=== PATIENT | male | born 1960 | race Caucasian/White ===

== ENCOUNTER 2017-03-24 11:06 | Inpatient (IN) ==
--- NOTE | 2017-03-24 11:14 | Emergency Department Note ---
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 He admits to increased hemoptysis from his baseline over these last few days as well that he attributes to his increased cough. His hemoptysis is still only blood streaked sputum occasionally with coughing. No massive hemoptysis. Per EMS his oxygen was 80% on room air. He states that his wheezing has also been worse than usual for the last few days. He has not spent the night in the hospital for the last 90 days. He has history of COPD and emphysema. He denies any headache, neck stiffness, blurred vision, abdominal pain, change in urination or bowel movements, rashes or edema. Pt Subjective Complaint: shortness of breath, cough - Related Data Home Medications Medication Instructions Recorded Confirmed Albuterol Neb [Proventil Neb] 1 - 2 puff IH Q4-6H 10/03/15 03/18/17 Cyclobenzaprine [Flexeril] 10 mg PO TID 10/03/15 03/18/17 Lisinopril [Zestril] 5 mg PO DAILY 10/03/15 03/18/17 Multivitamin [Multi-Day Vitamins] 1 each PO DAILY 10/03/15 03/18/17 Fluticasone/Vilanterol [Breo 1 each IH DAILY 03/18/17 03/18/17 Ellipta 100-25 Mcg INH] HYDROcodone/Acet 5/325 mg [[place] 1 tab PO Q6H PRN 03/18/17 03/18/17 5-325 mg] Previous Rx's Medication Instructions Recorded Guaifenesin [Guaifenesin ER] 1,200 mg PO BID #60 tab.er.12h 03/18/17 MethylPREDNISolone 4 mg PO AD #21 tab 03/18/17 [MethylPREDNISolone Dose Pack] Allergies Allergy/AdvReac Type Severity Reaction Status Date / Time No Known Allergies Allergy Verified 03/28/16 11:31 All systems ED: reviewed and negative except as stated. Past Medical History - Past Medical History Attestation: Yes The following information was validated with the patient. Source: patient Medical history: Reports: cancer, COPD, hypertension Surgical history: Reports: sinus surgery, other (Colonoscopy, nasal septum repair.) Psychiatric history: Reports: no psych history - Social History Smoking Status: Former smoker Smokeless Tobacco Status: Yes Alcohol use: Reports: none Drug use: Reports: none Physical Exam - Head Head exam: atraumatic, normocephalic, normal inspection - Eye Eye exam: Present: normal appearance, PERRL, EOMI - ENT ENT exam: normal exam, normal oropharynx, mucous membranes moist - Neck Neck exam: Present: normal inspection, full ROM, trachea midline - Chest Chest inspection: Present: normal inspection, symmetric chest wall rise - Respiratory Diffuse wheezes with crackles at the left lung base. Minimal stridor Cardiovascular Cardiovascular exam: Present: regular rate, normal rhythm, normal heart sounds - Abdominal Exam Abdominal exam: Present: soft, Non-Tender. Absent: tenderness, distention, guarding, rebound, rigidity - Extremities Exam Extremities exam: Present: normal inspection, full ROM - Expanded Lower Extremity Exam Hip/Pelvis exam: Present: normal inspection, full ROM - Back Exam Back exam: Present: normal inspection, full ROM. Absent: tenderness, CVA tenderness (R), CVA tenderness (L) - Neurological Exam Neurological exam: Present: alert, oriented X3, CN II-XII intact - Psychiatric Psychiatric exam: Present: normal affect, normal mood - Skin Skin exam: Present: warm, dry, intact, normal color Course - Reevaluation(s) Reevaluation #1: Chest x-ray shows pneumonia in the left lower lobe. Symptoms partially improved after DuoNeb treatment. Unfortunately, the patient still becomes hypoxic to <90% on room air just with talking to me. He will be admitted to the hospitalist for further management. Time: 12:26 Reevaluation #2: Accepted by Dr. Martinez for further management. Time: 12:47 Vital Signs Temperature 98.7 F 03/24/17 11:09 Pulse Rate 109 03/24/17 11:09 Respiratory Rate 16 03/24/17 11:09 Blood Pressure 127/80 03/24/17 11:09 O2 Sat by Pulse Oximetry 93 03/24/17 11:09 Temperature 98.7 F 03/24/17 11:09 Pulse Rate 110 03/24/17 11:09 Respiratory Rate 18 03/24/17 11:47 Blood Pressure 127/80 03/24/17 11:09 O2 Sat by Pulse Oximetry 91 03/24/17 11:47 Oxygen Delivery Oxygen Delivery Nasal Cannula Shortness of Breath/Dyspnea - Lab Data Result diagrams: 03/24/17 11:55 03/24/17 11:55 Lab Results 03/24/17 03/24/17 Range/Units 11:55 11:55 WBC 19.7 H (4.3-11.1) K/mcL RBC 4.63 (4.19-5.50) M/mcL Hgb 15.2 (12.9-16.9) g/dL Hct 44.4 (37.5-50.1) % MCV 95.9 (83.0-100.0) fL MCH 32.8 (28.0-33.3) pg MCHC 34.2 (31.6-35.5) g/dL RDW 12.2 (11.5-14.5) % Plt Count 427 H (140-400) K/mcL MPV 8.4 L (9.4-12.4) fL Immature Gran % 1.0 (0-4) % Seg Neutrophils % 87.8 % Lymphocytes % 2.5 % Monocytes % 8.1 % Eosinophils % 0.3 % Basophils % 0.3 % Neutrophils # 17.3 H (1.6-8.9) K/mcL Lymphocytes # 0.5 L (0.6-4.6) K/mcL Monocytes # 1.6 H (0.0-1.3) K/mcL Eosinophils # 0.1 (0.0-0.6) K/mcL Basophils # 0.1 (0.0-0.2) K/mcL Immature Plt Fraction 2.1 (1.1-6.1) % Sodium 133 L (136-145) mEq/L Potassium 3.9 (3.5-4.5) mEq/L Chloride 100 (98-109) mEq/L Carbon Dioxide 21 (19-29) mEq/L BUN 10 (8-26) mg/dL Creatinine 0.73 (0.72-1.25) mg/dL Est GFR ( Amer) > 60 (> 60) Est GFR (Non-Af Amer) > 60 (> 60) BUN/Creatinine Ratio 14 (6-26) Glucose 109 H (70-99) mg/dL Calculated Osmolality 276 L (280-300) Calcium 9.9 (8.6-10.8) mg/dL Attestation Statement - Attestation Attestation: Patient was seen with resident physician. I reviewed the history, physical, assessment and plan, and agree with the findings. I also personally evaluated this patient and had [id number] time with this patient. 56-year-old male presents to the emergency department with cough and hemoptysis increasing shortness of breath last 5-6 days. Patient has cancer and recent bronchoscopy approximately one month ago but states that his symptoms got worse over the last 5-6 days. He said the hemoptysis is somewhat usual for him, but the cough has gotten worse as has his shortness of breath. He has a history of COPD as well. He is concerned because he supposed to start a new chemotherapy agent at [facility] this week and wants to be ready for it, currently he does not feel well enough to have that treatment. On examination ENT is unremarkable. Heart tachycardic regular rhythm. Lungs diffuse wheezing throughout with no respiratory distress. Abdomen is soft and nontender. Extremities are unremarkable. Neurologically intact. Chest x-ray reveals pneumonia. We will treat with IV antibiotics. His breathing was improved with 3 nebulizer treatments while in the emergency department. Patient's oxygen level did not improve significantly enough for outpatient management. We will contact hospitalist service to arrange for hospitalization and further management for pneumonia and COPD exacerbation. I agree with resident physician assessment plan.
[2017-03-24] MEDS ORDERED: Ipratropium/Albuterol Neb 3 ML IH ONE (11:27)
[2017-03-24] MEDS ORDERED: methylPREDNISolone 125 MG/2 ML VIAL IVP ONE (11:29)
[2017-03-24 12:16] LABS: BUN/Creatinine Ratio 14 (6-26); Blood Urea Nitrogen 10 mg/dL (8-26); Calcium 9.9 mg/dL (8.6-10.8); Carbon Dioxide 21 mEq/L (19-29); Chloride 100 mEq/L (98-109); Glucose 109 mg/dL (70-99); Osmolality,Calculated 276 (280-300); Potassium 3.9 mEq/L (3.5-4.5); Sodium 133 mEq/L (136-145); eGFR For African Americans > 60 (> 60); eGFR For Non-African Americans > 60 (> 60)
[2017-03-24] MEDS ORDERED: Azithromycin 500 MG in D5% in Water 250 ML IVPB ONE (12:21)
[2017-03-24 12:24] LABS: Basophils # 0.1 K/mcL (0.0-0.2); Basophils % 0.3 %; Eosinophils # 0.1 K/mcL (0.0-0.6); Eosinophils % 0.3 %; Hematocrit 44.4 % (37.5-50.1); Hemoglobin 15.2 g/dL (12.9-16.9); Immature Platelets 2.1 % (1.1-6.1); Lymphocytes # 0.5 K/mcL (0.6-4.6); Lymphocytes % 2.5 %; Mean Corpuscular HGB Conc 34.2 g/dL (31.6-35.5); Mean Corpuscular Hemoglobin 32.8 pg (28.0-33.3); Mean Corpuscular Volume 95.9 fL (83.0-100.0); Mean Platelet Volume 8.4 fL (9.4-12.4); Monocytes # 1.6 K/mcL (0.0-1.3); Monocytes % 8.1 %; Neutrophils # 17.3 K/mcL (1.6-8.9); Platelet Count 427 K/mcL (140-400); Red Blood Count 4.63 M/mcL (4.19-5.50); Red Cell Distribution Width 12.2 % (11.5-14.5); Segmented Neutrophils % 87.8 %
[2017-03-24] MEDS ORDERED: Naloxone 0.4 MG/ML INJ IVP PRN (16:28)
[2017-03-24] MEDS ORDERED: 0.9 % Sodium Chloride 1,000 ML IVC SCH (16:30)
[2017-03-24] MEDS ORDERED: Ondansetron 4 MG/2 ML VIAL IVP PRN (16:31)
[2017-03-24] MEDS ORDERED: *HR* HYDROcodone/Acet 5/325 mg TABLET PO PRN (16:35)
[2017-03-24] MEDS ORDERED: Acetaminophen 325 MG TABLET PO PRN (16:35)
[2017-03-24] MEDS ORDERED: Albuterol 2.5 MG/3 ML NEBULIZER IH PRN (16:52)
[2017-03-24] MEDS ORDERED: Vancomycin (wt based) 1,000 MG VIAL IVPB SCH (17:00)
--- NOTE | 2017-03-24 17:13 | Internal Med History&Physical ---
Date of Encounter: 03/24/17 Time of Encounter: 16:00 Assessment and Plan (1) HCAP (healthcare-associated pneumonia) Current visit: Yes Status: Acute 1 patient has been experiencing fevers chills weakness shortness of breath cough or change in sputum color. Patient is a cancer patient he has been in and out of facilities for treatments over the past month. Rest x-ray did reveal pneumonia. We will empirically treat for healthcare acquired pneumonia Vancomycin and Zosyn 2 obtain sputum cultures 3 we will give oxygen titrated to maintain SPO2 greater than 92% 4 steroid 60 IV every 6 to taper 5 bronchodilators as needed (2) COPD (chronic obstructive pulmonary disease) Current visit: No Status: Chronic 1patient has history of COPD we will continue with oxygen as needed to maintain SPO2 greater than 92% 2 we will continue with steroid treatments 3 bronchodilators Qualifiers: COPD type: unspecified COPD Qualified Code(s): J44.9 - Chronic obstructive pulmonary disease, unspecified (3) Tracheal obstruction Current visit: No Status: Chronic 1 patient has history of tracheal obstruction related to tracheal cancer he is to undergo radiation treatment at [facility] next week Patient continue follow- up with oncology consult as needed (4) Hypertension Current visit: No Status: Chronic 1presently controlled we will continue with home medications Qualifiers: Hypertension type: unspecified secondary hypertension Qualified Code(s): I15.9 - Secondary hypertension, unspecified; I15 - Secondary hypertension (5) Non-small cell cancer of right lung Current visit: No Status: Chronic 1 patient is being followed by oncology as outpatient will continue with outpatient treatment and consults as needed (6) DVT prophylaxis Current visit: Yes Status: Acute 1 [facility] Internal Medicine - H&P: HPI Chief complaint: HERIBERTO Admitted From: Emergency Dept Plans for Post Hospital Care: Home History of present illness: Mr. Greenwood is a 56 year old male past medical history of long-standing intractable cancer hypertension COPD. Patient is status post prolonged partial resection in March 06. For the past week he has been experiencing worsening wheezing cough with productive yellow AND GREEN SPUTUM HE HAS ALSO BEEN EXPERIENCING FEVERS 99-101 WELL CHILLS OVER THE PAST 5 DAYS. HE ADMITS TO LEFT LOWER CHEST DISCOMFORT DURING COUGH. HE HAS NOT BEEN ABLE TO COMPLETE HIS ADLS HE BECOMES SHORT OF BREATH VERY EASILY AND WILL HAVE TO TAKE FREQUENT REST BREAKS WELL UTILIZING HIS RESCUE INHALER HE SAYS POSSIBLY 10 TIMES A DAY. HE IS NOT ON ANY HOME OXYGEN AT THIS TIME. HE IS NOT RECEIVING ANY CHEMOTHERAPY AT THIS TIME HE IS TO FOLLOW-UP WITH [facility] NEXT WEEK FOR RADIATION TREATMENT. THIS A.M. PATIENT DESCRIBED INCREASING SHORT OF BREATH HE STATES THAT NORMALLY HIS OXYGEN SATURATIONS HAVE BEEN RUNNING AROUND 95% HE DID CALL EMS AND UPON ARRIVAL PATIENT'S OXYGEN SATURATION 89% he is transported to the ER for further workup evaluation. According to ER records lab work did reveal some leukocytosis 19.7 rest of his lab work was unremarkable he was 92% on 2 L nasal cannula chest x-rays show pneumonia and a left lower lobe he did receive duo nebs as well as IV steroids he continued descent to 90% on room air during conversation. He was admitted for further workup and evaluation. Presently patient does not appear to be respiratory status distress however he does have audible tracheal breath sounds. He has a moist nonproductive cough lung sounds with scattered rhonchi. SPO2 is 92% on room air heart sounds with S1-S2 no rubs gallops click or murmurs noted. He is hemodynamically stable IV this case with Dr. Martinez who agrees with plan Past Med Surg Social Fam HX - Past Medical History Medical history: cancer, COPD, hypertension Psychiatric history: no psych history - Past Surgical History Surgical History: sinus surgery, other - Social History Smoking Status: Former smoker Smokeless Tobacco Status: Yes Alcohol use: none Drug use: none - Family History Father Living Status: Age at : 80 Hx Family Cancer: Yes (LUNG CANCER) Mother Adopted: Yes Living Status: Still Living Internal Medicine - H&P: Meds Albuterol Neb [Proventil Neb] 1 - 2 puff IH Q4-6H 10/03/15 [History] Cyclobenzaprine [Flexeril] 10 mg PO TID 10/03/15 [History] Lisinopril [Zestril] 5 mg PO DAILY 10/03/15 [History] Multivitamin [Multi-Day Vitamins] 1 tab PO DAILY 10/03/15 [History] Guaifenesin [Guaifenesin ER] 1,200 mg PO BID #60 tab.er.12h 03/18/17 [Rx] HYDROcodone/Acet 5/325 mg [[place] 5-325 mg] 1 tab PO Q6H PRN 03/18/17 [History] MethylPREDNISolone [MethylPREDNISolone Dose Pack] 4 mg PO AD #21 tab 03/18/17 [ Rx] Albuterol Neb [AccuNeb] 1.25 mg IH TID PRN 03/24/17 [History] Fluticasone/Vilanterol [Breo Ellipta 200-25 Mcg INH] 1 puff IH DAILY 03/24/17 [ History] Umeclidinium [address] [Incruse Ellipta] 1 puff IH DAILY 03/24/17 [History] Allergies No Known Allergies Allergy (Verified 03/28/16 11:31) All Systems PM: A 10-system review of systems was performed and is negative for pertinent findings except as documented above in the HPI. - Constitutional Constitutional: fatigue, fever(s) - Cardiovascular Cardiovascular ROS IM: chest pain, no diaphoresis, no dyspnea, no lightheadedness, no palpitations, no syncope - Respiratory Respiratory: cough, dyspnea, dyspnea on exertion, wheezing, change in phlegm color, pain with cough - Gastrointestinal Gastrointestinal: no abdominal pain, no diarrhea, no hematemesis, no hematochezia, no melena, no nausea, no vomiting - Musculoskeletal Musculoskeletal ROS IM: no numbness, no tingling - Integumentary Integumentary IM: no rash, no unusual bruising - Neurological Neurological ROS: no confusion, no convulsions, no focal weakness, no numbness, no tingling, no tremor(s) - Constitutional Vitals: Temp Pulse Resp BP Pulse Ox 98.5 F 94 17 108/72 95 03/24/17 16:37 03/24/17 16:37 03/24/17 16:37 03/24/17 16:37 03/24/17 16:37 General appearance: Present: A&O X 3, loss of weight - Head Head exam: Present: atraumatic, normocephalic - Eye Eye exam: Present: PERRL, conjuntiva pink, sclera anicteric Pupils: Present: PERRL - Neck Neck exam general surgery: Present: supple, trachea midline. Absent: lymphadenopathy - Respiratory Respiratory exam: Present: rhonchi. Absent: accessory muscle use, rales, wheezes - Cardiovascular Cardiovascular exam: Present: RRR, +S1, +S2. Absent: diastolic murmur, gallop, rubs, systolic murmur - GI/Abdominal GI/Abdominal exam: Present: normal bowel sounds, soft, no peritoneal signs. Absent: distended, tenderness - Extremities Exam Extremities exam: Present: warm, radial pulses palpable and symetrical. Absent : calf tenderness, cyanotic, pedal edema - Neurological Exam Neurological exam: Present: CN II-XII intact, oriented X3, no focal deficits. Absent: pronater drift, facial droop, speech deficit - Skin Skin exam: Present: dry, intact Internal Med - H&P Results - Labs CBC & Chem 7: 03/24/17 11:55 03/24/17 11:55 - EKG Data EKG shows normal: sinus rhythm - EKG Data Interpretation IM: normal EKG - Diagnostic Studies Other Images Additional comments: Chest X-Ray 03/24/17 11:29 IMPRESSION: 1. COPD and redemonstration of findings consistent with metastatic lung cancer. 2. In the left lower lobe there are perihilar opacities which appear to have progressed since the prior PET/CT and CT chest exams and given recent bronchoscopy could represent post procedure hemorrhage or pneumonia. D/ / 03/24/2017 11:53:10 Paco Villalpando MD / Huong Lee Interpreting Provider: Paco Villalpando MD
--- NOTE | 2017-03-24 17:37 | Event Note ---
Date of Encounter: 03/24/17 Time of Encounter: 17:35 Patient seen and examined with nurse practitioner. Agree with assessment and plan. We will treat for HCAP. Vanc and Zosyn. Also an element of mild COPD exacerbation. IV steroids and nebulizer treatment. Sputum on blood cultures. telemetry monitoring. Swallowing evaluation
[2017-03-24] MEDS: methylPREDNISolone 125 MG/2 ML VIAL IVP SCH (17:58)
[2017-03-24] MEDS: Vancomycin 1,500 MG in D5% in Water 250 ML IVPB SCH (17:58)
[2017-03-24] MEDS: Ipratropium/Albuterol Neb 3 ML IH SCH ×2 (19:30→22:27)
[2017-03-25] MEDS: methylPREDNISolone 125 MG/2 ML VIAL IVP SCH ×2 (00:09→06:42)
[2017-03-25] MEDS: Piperacillin/Tazobactam 3.375 GM in D5% in Water (Mini-Bag+) 100 ML IVPB SCH ×3 (00:10→17:36)
[2017-03-25 04:10] LABS: Basophils % 0.1 %; Hematocrit 41.2 % (37.5-50.1); Hemoglobin 14.3 g/dL (12.9-16.9); Immature Granulocytes % 0.6 % (0-4); Immature Platelets 2.4 % (1.1-6.1); Lymphocytes # 0.4 K/mcL (0.6-4.6); Mean Corpuscular HGB Conc 34.7 g/dL (31.6-35.5); Mean Corpuscular Hemoglobin 33.5 pg (28.0-33.3); Mean Corpuscular Volume 96.5 fL (83.0-100.0); Mean Platelet Volume 9.1 fL (9.4-12.4); Monocytes # 0.3 K/mcL (0.0-1.3); Monocytes % 1.4 %; Neutrophils # 17.4 K/mcL (1.6-8.9); Platelet Count 413 K/mcL (140-400); Red Blood Count 4.27 M/mcL (4.19-5.50); Red Cell Distribution Width 12.3 % (11.5-14.5); Segmented Neutrophils % 95.9 %
[2017-03-25 04:34] LABS: BUN/Creatinine Ratio 17 (6-26); Blood Urea Nitrogen 11 mg/dL (8-26); Calcium 9.6 mg/dL (8.6-10.8); Carbon Dioxide 24 mEq/L (19-29); Chloride 103 mEq/L (98-109); Glucose 183 mg/dL (70-99); Osmolality,Calculated 282 (280-300); Sodium 134 mEq/L (136-145); eGFR For African Americans > 60 (> 60); eGFR For Non-African Americans > 60 (> 60)
[2017-03-25] MEDS: Ipratropium/Albuterol Neb 3 ML IH SCH ×4 (04:45→23:32)
[2017-03-25] MEDS: *HR* Enoxaparin 40 MG/0.4 ML SYRINGE SQ SCH (06:44)
[2017-03-25] MEDS: Vancomycin 1,500 MG in D5% in Water 250 ML IVPB SCH ×2 (06:50→17:49)
[2017-03-25] MEDS ORDERED: D5% in Water 1,000 ML IVC PRN (08:02)
[2017-03-25] MEDS ORDERED: *HR* Dextrose 50 % in Water (Syg) 50 ML SYRINGE IVP PRN (08:02)
[2017-03-25] MEDS ORDERED: Dextrose Gel 15 GM PO PRN ×2 (08:02)
[2017-03-25] MEDS ORDERED: (Fluticasone/Vilanterol [Breo Ellipta 200-25 Mcg Inh] IH SCH (09:00)
[2017-03-25] MEDS ORDERED: (Umeclidinium Bromide [Incruse Ellipta] 1 PUFF) IH SCH (09:00)
[2017-03-25] MEDS: Multivit/Ca/Min/Fe/FA 1 TAB TABLET PO SCH (09:02)
[2017-03-25] MEDS: Insulin LISPRO 300 UNITS/3 ML VIAL SQ SCH ×4 (09:04→21:58)
--- NOTE | 2017-03-25 11:06 | Internal Med Progress Note ---
<Avril Tracy - Last Filed: 03/25/17 11:58> Date of Encounter: 03/25/17 Time of Encounter: 11:03 - Assessment and plan (1) HCAP (healthcare-associated pneumonia) Current Visit: Yes Status: Acute Assessment and plan: patient was admitted with increased SOB, green sputum production, fever/chills. He was recently in the hospital at [facility] in begining of January for bronschoscopy likely COPD exacerbation secondary to HCAP CXR showed perihilar opacities in the left lower lobe representing pneumonia. Plan: Vanc and zosyn zosyn day 1 blood culture x2 pending sputum culture pending scheduled DuoNebs IV methylprednisolone 40mg Q12 HR with Low dose SSI coverage. [place] PRN for cancer associated pain. (2) COPD exacerbation Current Visit: Yes Status: Acute Assessment and plan: llikely secondary to HCAP. Plan as above. (3) Non-small cell cancer of right lung Current Visit: No Status: Chronic Assessment and plan: patient was diagnosed with R squamous cell lung cancer in 11/[address] guided biopsy at [facility]. S/p RLL lobectomy on 12/10/2014 complicated by pneumothorax. patient was prescribed neoadjuvant chemotherapy but was not able to tolerate. 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 was transferred to [facility] where he had rigid bronchoscopyand debulking. S/p Radiation. patient follows at [facility], and is to have appointment this week for further radiation treatments. Follows with Dr. Alston here. (4) Hypertension Current Visit: No Status: Chronic Assessment and plan: continue home med lisinopril. blood pressure within normal limits at this time. Qualifiers: Hypertension type: unspecified secondary hypertension Qualified Code(s): I15.9 - Secondary hypertension, unspecified (5) DVT prophylaxis Current Visit: No Status: Acute Assessment and plan: Lovenox - Subjective Interval history: 56 year old male evaluated at bedside. patient denies nausea, vomiting, diarrhea. He does admit to fever and chills. He denies any pain currently. He does have mild SOB with bloody sputum production, which has decreased since hospital admission. He says he has been having bloody sputum production ever since his bronchoscopy earlier in January at [facility]. Patient says he has a consult appointment on Thursday for more radiation at [facility]. He follows with Dr. Alston here at [place]. He denies any other new complaints today. - Constitutional Vitals: Temp Pulse Resp BP Pulse Ox 97.7 F 106 15 132/73 94 03/25/17 11:00 03/25/17 11:00 03/25/17 11:00 03/25/17 11:00 03/25/17 11:00 General appearance: Present: A&O X 3, pleasant, no acute distress, loss of weight, answers questions appropriately - Head Head exam: Present: atraumatic, normocephalic - Neck Neck exam general surgery: Present: supple, trachea midline - Respiratory Additional comments: decreased breath sounds on right lung, mild wheezing heard on left side. - Cardiovascular Cardiovascular exam: Present: RRR, +S1, +S2 - GI/Abdominal GI/Abdominal exam: Present: normal bowel sounds, soft. Absent: distended, tenderness - Extremities Exam Extremities exam: Absent: cyanotic, pedal edema, tenderness - Neurological Exam Neurological exam: Present: alert, oriented X3, no focal deficits - Psychiatric Psychiatric exam: Present: normal affect, normal mood - Skin Additional comments: scar present on right axillary area from prior lung surgery. Internal Medicine: Result - Labs CBC & Chem 7: 03/25/17 02:57 03/25/17 02:57 Labs: Short CBC 03/25/17 Range/Units 02:57 WBC 18.1 H (4.3-11.1) K/mcL Hgb 14.3 (12.9-16.9) g/dL Hct 41.2 (37.5-50.1) % Plt Count 413 H (140-400) K/mcL Neutrophils # 17.4 H (1.6-8.9) K/mcL BMP 03/25/17 02:57 Sodium 134 L Potassium 4.0 Chloride 103 Carbon Dioxide 24 BUN 11 Creatinine 0.66 L Glucose 183 H Calcium 9.6 Consult Discharge Plan - Plan Referrals: Rolf Cole MD [Primary Care Provider] - 04/03/17 1:15 pm <Jose Penn - Last Filed: 03/25/17 18:10> Date of Encounter: 03/25/17 - Assessment and plan (1) Acute on chronic respiratory failure with hypoxemia Current Visit: Yes Status: Acute Assessment and plan: Wean oxygen as able (2) COPD exacerbation Current Visit: Yes Status: Acute (3) Community acquired pneumonia Current Visit: Yes Status: Acute Assessment and plan: Recent hospitalization. On IV abx. (4) Hypertension Current Visit: No Status: Chronic Qualifiers: Hypertension type: essential hypertension Qualified Code(s): I10 - Essential (primary) hypertension (5) Non-small cell cancer of right lung Current Visit: No Status: Chronic - Constitutional Vitals: Temp Pulse Resp BP Pulse Ox 98.0 F 94 16 129/73 93 03/25/17 15:22 03/25/17 15:22 03/25/17 16:05 03/25/17 16:05 03/25/17 16:05 Internal Medicine: Result - Labs CBC & Chem 7: 03/25/17 02:57 03/25/17 02:57 Labs: Short CBC 03/25/17 Range/Units 02:57 WBC 18.1 H (4.3-11.1) K/mcL Hgb 14.3 (12.9-16.9) g/dL Hct 41.2 (37.5-50.1) % Plt Count 413 H (140-400) K/mcL Neutrophils # 17.4 H (1.6-8.9) K/mcL BMP 03/25/17 02:57 Sodium 134 L Potassium 4.0 Chloride 103 Carbon Dioxide 24 BUN 11 Creatinine 0.66 L Glucose 183 H Calcium 9.6 - Attending Attestation I examined this patient and my medical decision-making was reviewed with the Resident Physician on 03/25/17. I agree with the documented findings, disposition and treatment plan as described except to the extent set forth below. Mr. Greenwood is currently admitted for acute on chronic hypoxic resp failure due to pneumonia. He is moderate to high risk due to potential for worsening respiratory issues. Mr. Greenwood is feeling OK. No pain at this time. Breathing is OK. No fever or chills. No GI symptoms. Exam Alert. Comfortable Heart reg Wheeze present I/P 1. Acute on chronic hypoxic resp failure 2. Pneumonia 3. Lungs cancer Further diagnoses and plan as above
--- NOTE | 2017-03-25 16:02 | Electrocardiograph Report ---
[place] [id number] Test Date: 2017-03-24 Pat Name: Rocky Greenwood Department: 102 Room: 2N6 Gender: M [employer]: Brian : 1960 Requested By: Kamran Huang Order Number: [id number] Reading MD: Mich Keating MD Measurements Intervals [place] Rate: 110 P: 59 PA: 153 QRS: 53 QRSD: 90 T: 51 QT: 315 QTc: 380 Interpretive Statements SINUS TACHYCARDIA Electronically Signed On 03-25-2017 16:00:55 EDT by Mich Keating MD
[2017-03-25] MEDS: MethylPREDNISolone 40 MG/ML VIAL IVP SCH (17:36)
[2017-03-26] MEDS: Piperacillin/Tazobactam 3.375 GM in D5% in Water (Mini-Bag+) 100 ML IVPB SCH ×3 (00:22→18:38)
[2017-03-26 05:05] LABS: Basophils % 0.1 %; Hematocrit 42.3 % (37.5-50.1); Immature Granulocytes % 1.2 % (0-4); Lymphocytes # 0.4 K/mcL (0.6-4.6); Lymphocytes % 1.5 %; Mean Corpuscular HGB Conc 33.1 g/dL (31.6-35.5); Mean Corpuscular Hemoglobin 31.8 pg (28.0-33.3); Mean Corpuscular Volume 96.1 fL (83.0-100.0); Mean Platelet Volume 8.6 fL (9.4-12.4); Monocytes # 1.1 K/mcL (0.0-1.3); Monocytes % 4.6 %; Neutrophils # 21.3 K/mcL (1.6-8.9); Platelet Count 403 K/mcL (140-400); Red Cell Distribution Width 12.1 % (11.5-14.5); Segmented Neutrophils % 92.6 %
[2017-03-26] MEDS: Ipratropium/Albuterol Neb 3 ML IH SCH ×3 (05:15→16:16)
[2017-03-26 05:18] LABS: BUN/Creatinine Ratio 19 (6-26); Blood Urea Nitrogen 13 mg/dL (8-26); Calcium 9.6 mg/dL (8.6-10.8); Carbon Dioxide 26 mEq/L (19-29); Chloride 102 mEq/L (98-109); Glucose 152 mg/dL (70-99); Osmolality,Calculated 287 (280-300); Sodium 137 mEq/L (136-145); eGFR For African Americans > 60 (> 60); eGFR For Non-African Americans > 60 (> 60)
[2017-03-26] MEDS: MethylPREDNISolone 40 MG/ML VIAL IVP SCH ×2 (05:37→15:52)
[2017-03-26] MEDS: Vancomycin 1,500 MG in D5% in Water 250 ML IVPB SCH (05:37)
[2017-03-26] MEDS: *HR* Enoxaparin 40 MG/0.4 ML SYRINGE SQ SCH (05:37)
[2017-03-26] MEDS: Multivit/Ca/Min/Fe/FA 1 TAB TABLET PO SCH (08:15)
--- NOTE | 2017-03-26 08:47 | Internal Med Progress Note ---
<Avril Tracy - Last Filed: 03/26/17 18:16> Date of Encounter: 03/26/17 Time of Encounter: 08:44 - Assessment and plan (1) HCAP (healthcare-associated pneumonia) Current Visit: Yes Status: Acute Assessment and plan: patient was admitted with increased SOB, green sputum production, fever/chills. He was recently in the hospital at [facility] in begining of January for bronschoscopy likely COPD exacerbation secondary to HCAP CXR showed perihilar opacities in the left lower lobe representing pneumonia. Plan: Vanc and zosyn zosyn day 2 blood culture x2 pending sputum culture pending scheduled DuoNebs IV methylprednisolone 40mg daily with Low dose SSI coverage. [place] PRN for cancer associated pain. (2) COPD exacerbation Current Visit: Yes Status: Acute Assessment and plan: llikely secondary to HCAP. Plan as above. (3) Non-small cell cancer of right lung Current Visit: No Status: Chronic Assessment and plan: patient was diagnosed with R squamous cell lung cancer in 11/[address] guided biopsy at [facility]. S/p RLL lobectomy on 12/10/2014 complicated by pneumothorax. patient was prescribed neoadjuvant chemotherapy but was not able to tolerate. 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 was transferred to [facility] where he had rigid bronchoscopy and debulking. S/p Radiation. patient follows at [facility], and is to have appointment this week for further radiation treatments. Follows with Dr. Alston here. (4) Hypertension Current Visit: No Status: Chronic Assessment and plan: continue home med lisinopril. blood pressure within normal limits at this time. Qualifiers: Hypertension type: essential hypertension Qualified Code(s): I10 - Essential (primary) hypertension (5) DVT prophylaxis Current Visit: No Status: Acute Assessment and plan: Lovenox - Subjective Interval history: 56 year old male evaluated at bedside. patient had no acute events overnight. Patient denies nausea, vomiting, diarrhea, fever, chills, shortness of breath. he feels his breathing has improved since yesterday. He is still coughing up some blood, which he says he has been coughing up since his bronchoscopy in January. He denies lightheadedness or dizziness. patient has no new complaints today. - Constitutional Vitals: Temp Pulse Resp BP Pulse Ox 97.8 F 103 17 117/67 94 03/26/17 07:07 03/26/17 07:07 03/26/17 07:07 03/26/17 07:07 03/26/17 07:07 General appearance: Present: A&O X 3, pleasant, no acute distress, loss of weight, answers questions appropriately - Head Head exam: Present: atraumatic, normocephalic - Neck Neck exam general surgery: Present: supple, trachea midline - Respiratory Additional comments: left upper lobe mild wheezes present. absent breath sounds on right lower lobe. - Cardiovascular Cardiovascular exam: Present: RRR, +S1, +S2. Absent: diastolic murmur, systolic murmur - GI/Abdominal GI/Abdominal exam: Present: normal bowel sounds, soft. Absent: distended, tenderness - Extremities Exam Extremities exam: Absent: cyanotic, pedal edema Additional comments: no clubbing present. - Neurological Exam Neurological exam: Present: alert, oriented X3, no focal deficits - Psychiatric Psychiatric exam: Present: normal affect, normal mood - Skin Additional comments: scar present on right mid axillary line from prior lobectomy Internal Medicine: Result - Labs CBC & Chem 7: 03/26/17 04:26 03/26/17 04:26 Labs: Short CBC 03/26/17 Range/Units 04:26 WBC 23.0 H (4.3-11.1) K/mcL Hgb 14.0 (12.9-16.9) g/dL Hct 42.3 (37.5-50.1) % Plt Count 403 H (140-400) K/mcL Neutrophils # 21.3 H (1.6-8.9) K/mcL BMP 03/26/17 04:26 Sodium 137 Potassium 4.0 Chloride 102 Carbon Dioxide 26 BUN 13 Creatinine 0.68 L Glucose 152 H Calcium 9.6 Consult Discharge Plan - Plan Referrals: Rolf Cole MD [Primary Care Provider] - 04/03/17 1:15 pm <Tristan Pisano P - Last Filed: 03/26/17 18:30> Date of Encounter: 03/26/17 - Constitutional Vitals: Temp Pulse Resp BP Pulse Ox 97.9 F 91 16 124/78 100 03/26/17 16:22 03/26/17 16:22 03/26/17 16:22 03/26/17 16:22 03/26/17 16:22 Internal Medicine: Result - Labs CBC & Chem 7: 03/26/17 04:26 03/26/17 04:26 Labs: Short CBC 03/26/17 Range/Units 04:26 WBC 23.0 H (4.3-11.1) K/mcL Hgb 14.0 (12.9-16.9) g/dL Hct 42.3 (37.5-50.1) % Plt Count 403 H (140-400) K/mcL Neutrophils # 21.3 H (1.6-8.9) K/mcL BMP 03/26/17 04:26 Sodium 137 Potassium 4.0 Chloride 102 Carbon Dioxide 26 BUN 13 Creatinine 0.68 L Glucose 152 H Calcium 9.6 - Attending Attestation I examined this patient and my medical decision-making was reviewed with the SHORT ORDER COOK/PA/Advanced Practice Nurse/Resident Physician. I agree with the documented findings, disposition and treatment plan as described except to the extent set forth below. will get dual coverage for pseudomonas this is HAP not HCAP home soon
[2017-03-26] MEDS: Insulin LISPRO 300 UNITS/3 ML VIAL SQ SCH ×4 (09:36→21:58)
[2017-03-26] MEDS ORDERED: Vancomycin 1,750 MG in D5% in Water 500 ML IVPB SCH (14:00)
[2017-03-27] MEDS: Ipratropium/Albuterol Neb 3 ML IH SCH ×5 (00:08→22:08)
[2017-03-27] MEDS: Piperacillin/Tazobactam 3.375 GM in D5% in Water (Mini-Bag+) 100 ML IVPB SCH ×3 (01:38→17:36)
[2017-03-27 05:19] LABS: Basophils # 0.1 K/mcL (0.0-0.2); Basophils % 0.4 %; Eosinophils % 0.1 %; Hematocrit 41.3 % (37.5-50.1); Hemoglobin 13.9 g/dL (12.9-16.9); Lymphocytes # 0.4 K/mcL (0.6-4.6); Lymphocytes % 2.5 %; Mean Corpuscular HGB Conc 33.7 g/dL (31.6-35.5); Mean Corpuscular Hemoglobin 33.3 pg (28.0-33.3); Mean Corpuscular Volume 98.8 fL (83.0-100.0); Mean Platelet Volume 8.7 fL (9.4-12.4); Monocytes # 1.5 K/mcL (0.0-1.3); Monocytes % 9.2 %; Neutrophils # 14.4 K/mcL (1.6-8.9); Platelet Count 342 K/mcL (140-400); Red Blood Count 4.18 M/mcL (4.19-5.50); Red Cell Distribution Width 12.4 % (11.5-14.5); Segmented Neutrophils % 85.8 %
[2017-03-27 05:34] LABS: BUN/Creatinine Ratio 18 (6-26); Blood Urea Nitrogen 12 mg/dL (8-26); Calcium 9.4 mg/dL (8.6-10.8); Carbon Dioxide 26 mEq/L (19-29); Chloride 104 mEq/L (98-109); Glucose 114 mg/dL (70-99); Osmolality,Calculated 285 (280-300); Potassium 4.2 mEq/L (3.5-4.5); Sodium 137 mEq/L (136-145); eGFR For African Americans > 60 (> 60); eGFR For Non-African Americans > 60 (> 60)
[2017-03-27] MEDS: Vancomycin 1,750 MG in D5% in Water 500 ML IVPB SCH ×2 (05:35→17:36)
[2017-03-27] MEDS: *HR* Enoxaparin 40 MG/0.4 ML SYRINGE SQ SCH (05:40)
[2017-03-27] MEDS: MethylPREDNISolone 40 MG/ML VIAL IVP SCH (08:50)
[2017-03-27] MEDS: Multivit/Ca/Min/Fe/FA 1 TAB TABLET PO SCH (08:51)
[2017-03-27] MEDS: Insulin LISPRO 300 UNITS/3 ML VIAL SQ SCH ×4 (08:52→20:43)
--- NOTE | 2017-03-27 08:57 | Internal Med Progress Note ---
Date of Encounter: 03/27/17 Time of Encounter: 08:56 - Assessment and plan (1) Hemoptysis Current Visit: Yes Status: Acute Assessment and plan: Patient was complaining of hemoptysis since 5 AM this morning. Noted that patient had a 6-7 episodes of moderate to severe hemoptysis. 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 Patient was treated by oncologist at [facility]. Currently patient is admitted for hospital-acquired pneumonia. Today is her day 3 of IV antibiotics. Plan: Propped up position. Discontinue Lovenox. Apply SCD. CT scan of the chest with contrast (creatinine 1.09) Consult pulmonology: Possible bronchoscopy. Nothing by mouth. Plan discussed with the patient. Patient verbalized understanding. (2) HAP (hospital-acquired pneumonia) Current Visit: Yes Status: Acute Assessment and plan: Admitted with hospital-acquired pneumonia. Presently on vancomycin/Zosyn/levofloxacin Day 3 of antibiotics. Noted that this morning patient had a hemoptysis. Plan: See above (3) COPD exacerbation Current Visit: Yes Status: Acute Assessment and plan: Patient is presently on steroids/antibiotics/bronchodilators. We will continue same management. (4) DVT prophylaxis Current Visit: No Status: Acute Assessment and plan: Discontinue Lovenox Apply SCD. Medical decision making: This patient has moderate to severe risk of worsening clinically in spite of being on appropriate treatment due to the new onset of hemoptysis in a background history of a squamous cell carcinoma of the lung. - Subjective Interval history: Patient seen and examined. Chart reviewed. Patient complains of hemoptysis since 5 AM this morning. Patient had more than 6 or 7 episodes of hemoptysis. - Constitutional Vitals: Temp Pulse Resp BP Pulse Ox 97.8 F 66 18 120/78 95 03/27/17 07:00 03/27/17 07:00 03/27/17 07:00 03/27/17 07:00 03/27/17 07:00 General appearance: Present: A&O X 3, pleasant, no acute distress, loss of weight, answers questions appropriately - Head Head exam: Present: atraumatic, normocephalic Additional comments: noted hemoptysis and blood stained tissue papers at bedside. - Eye Eye exam: Present: PERRL, conjuntiva pink, sclera anicteric Pupils: Present: PERRL - Neck Neck exam general surgery: Present: supple, trachea midline. Absent: lymphadenopathy - Respiratory Respiratory exam: Present: CTAB. Absent: accessory muscle use, rales, rhonchi, wheezes - Cardiovascular Cardiovascular exam: Present: RRR, +S1, +S2. Absent: diastolic murmur, gallop, rubs, systolic murmur - GI/Abdominal GI/Abdominal exam: Present: normal bowel sounds, soft, no peritoneal signs. Absent: distended, tenderness - Extremities Exam Extremities exam: Present: warm, radial pulses palpable and symetrical. Absent : calf tenderness, cyanotic, pedal edema - Neurological Exam Neurological exam: Present: CN II-XII intact, oriented X3, no focal deficits. Absent: pronater drift, facial droop, speech deficit - Skin Skin exam: Present: dry, intact Internal Medicine: Result - Labs CBC & Chem 7: 03/27/17 04:46 03/27/17 04:46 Labs: Short CBC 03/27/17 Range/Units 04:46 WBC 16.8 H (4.3-11.1) K/mcL Hgb 13.9 (12.9-16.9) g/dL Hct 41.3 (37.5-50.1) % Plt Count 342 (140-400) K/mcL Neutrophils # 14.4 H (1.6-8.9) K/mcL BMP 03/27/17 04:46 Sodium 137 Potassium 4.2 Chloride 104 Carbon Dioxide 26 BUN 12 Creatinine 0.68 L Glucose 114 H Calcium 9.4 Consult Discharge Plan - Plan Referrals: Rolf Cole MD [Primary Care Provider] - 04/03/17 1:15 pm
[2017-03-27] MEDS ORDERED: *HR* Midazolam HCl 5 MG/5 ML VIAL IVP ONE (10:34)
[2017-03-27] MEDS ORDERED: *HR* FentaNYL (PF) 100 MCG/2 ML VIAL ONE (10:35)
[2017-03-27] MEDS ORDERED: Lidocaine Viscous Oral Soln 15 ML SOLUTION ONE (10:35)
[2017-03-27] MEDS ORDERED: 0.9 % Sodium Chloride 500 ML IVC SCH (11:00)
[2017-03-27] MEDS ORDERED: *HR* FentaNYL (PF) 100 MCG/2 ML VIAL IVP PRN (11:15)
[2017-03-27] MEDS ORDERED: Lidocaine Viscous Oral Soln 15 ML SOLUTION MM ONE (11:15)
[2017-03-27] MEDS ORDERED: *HR* Midazolam HCl 5 MG/5 ML VIAL IVP PRN (11:15)
--- NOTE | 2017-03-27 11:46 | Pulmonology Consult Note ---
Date of Encounter: 03/27/17 Time of Encounter: 08:40 Assessment and Plan (1) Hemoptysis Current Visit: Yes Status: Acute Hemoptysis in this particular individual is related to his known malignancy of the distal trachea. In this regard, further evaluation will be performed to include bronchoscopy and possibly promotion of tumor ablation and hemostasis with APC. Code(s): R04.2 - Hemoptysis SNOMED Code(s): 29992917 (2) Abnormal CT scan, chest Current Visit: Yes Status: Acute The abnormal chest CT findings include possible lesion within the distal trachea above the irma is well as mass within the left hilar region partial obstruction of the left upper and lower lobe and likely metastatic lesion in the opposite lung. These findings are invariably related to squamous cell current cancer of the lung with metastasis. Conceivably, the patient could also have a postobstructive pneumonia within the left chest (patient's history of fevers chills and purulent sputum production would coincide with this radiographic abnormality). Nonetheless, further evaluation will be performed to include bronchoscopy. In the meantime, given concern clinically for pneumonia, I think it is reasonable to provide antimicrobial therapy streamlined in the escalated based upon microbiological analysis. Code(s): R93.8 - Abnormal findings on diagnostic imaging of other specified body structures SNOMED Code(s): 562788082 (3) COPD (chronic obstructive pulmonary disease) Current Visit: No Status: Chronic Continue bronchodilator therapy for treatment of COPD. Qualifiers: COPD type: unspecified COPD Qualified Code(s): J44.9 - Chronic obstructive pulmonary disease, unspecified Code(s): J44.9 - Chronic obstructive pulmonary disease, unspecified History of Present Illness Consult date: 03/27/17 Chief complaint: Hemoptysis, abnormal chest CT scan History of present illness: 56-year-old male former cigarette smoker with underlying COPD among other comorbidities who has been diagnosed recently with seeming recurrent squamous cell cancer of the long (lesion recently identified within the distal main trachea approximately centimeter above the irma) for which the patient has received chemotherapy and radiation therapy. Apparently, the patient has had a prior right lower lobectomy several years ago for squamous cell cancer of the lung and within the past 12 months was noted to have seeming recurrence of the same. Reportedly, the patient completed chemoradiation therapy but with follow-up evaluation performed within the last several months, was noted to have recurrence as evidenced by findings consistent with the same from PET/CT scan. The patient presented to the hospital with complaints of cough, purulent sputum production, fever and chills. Was thought to have recurrent pneumonia started on antibiotic therapy for treatment of possible multidrug resistant pathogens. Since his admission, the patient also experienced hemoptysis submassive in nature based upon his description. As a result of hemoptysis and given the patient's history of known squamous cell carcinoma affecting the distal airway, pulmonary consultation requested. Past Med Surg Social Fam HX - Past Medical History Medical history: cancer, COPD, hypertension Psychiatric history: no psych history - Past Surgical History Surgical History: sinus surgery, other (Right lower lobectomy) - Social History Smoking Status: Former smoker Smokeless Tobacco Status: Yes Alcohol use: none Drug use: none - Family History Father Living Status: Age at : 80 Hx Family Cancer: Yes (LUNG CANCER) Mother Adopted: Yes Living Status: Still Living Medications and Allergies Albuterol Neb [Proventil Neb] 1 - 2 puff IH Q4-6H 10/03/15 [History] Cyclobenzaprine [Flexeril] 10 mg PO TID 10/03/15 [History] Lisinopril [Zestril] 5 mg PO DAILY 10/03/15 [History] Multivitamin [Multi-Day Vitamins] 1 tab PO DAILY 10/03/15 [History] Guaifenesin [Guaifenesin ER] 1,200 mg PO BID #60 tab.er.12h 03/18/17 [Rx] HYDROcodone/Acet 5/325 mg [[place] 5-325 mg] 1 tab PO Q6H PRN 03/18/17 [History] MethylPREDNISolone [MethylPREDNISolone Dose Pack] 4 mg PO AD #21 tab 03/18/17 [ Rx] Albuterol Neb [AccuNeb] 1.25 mg IH TID PRN 03/24/17 [History] Fluticasone/Vilanterol [Breo Ellipta 200-25 Mcg INH] 1 puff IH DAILY 03/24/17 [ History] Umeclidinium [place] [Incruse Ellipta] 1 puff IH DAILY 03/24/17 [History] Allergies No Known Allergies Allergy (Verified 03/28/16 11:31) All Systems: A 10-system review of systems was performed and is negative for pertinent findings except as documented above in the HPI. - Constitutional Constitutional: as per HPI - Respiratory Respiratory: as per HPI Physical Examination Vital Signs: Vital Signs, Last 4 Hours Temp Pulse Resp BP Pulse Ox 03/27/17 11:27 91 18 127/78 91 03/27/17 11:22 91 18 131/83 91 03/27/17 11:17 89 18 137/77 88 03/27/17 11:12 83 18 134/77 93 03/27/17 11:03 89 18 141/75 03/27/17 10:54 97.8 F 66 18 120/78 95 03/27/17 09:00 95 General appearance: no acute distress Eyes: nonicteric ENT: oropharynx moist Neck: supple Inspection: other (Right thoracotomy scar) Auscultation: bilateral: diminished breath sounds, other (Focal airway noise noted within the distribution of the left lower lobe.) Cardiovascular: regular rate and rhythm Gastrointestinal: normoactive bowel sounds Integumentary: normal Extremities: no cyanosis Musculoskeletal: no deformities normal mental status, non-focal exam Results - Laboratory Findings CBC and BMP: 03/27/17 04:46 03/27/17 04:46 Abnormal lab findings: Abnormal lab results WBC 16.8 K/mcL (4.3-11.1) H 03/27/17 04:46 RBC 4.18 M/mcL (4.19-5.50) L 03/27/17 04:46 MPV 8.7 fL (9.4-12.4) L 03/27/17 04:46 Neutrophils # 14.4 K/mcL (1.6-8.9) H 03/27/17 04:46 Lymphocytes # 0.4 K/mcL (0.6-4.6) L 03/27/17 04:46 Monocytes # 1.5 K/mcL (0.0-1.3) H 03/27/17 04:46 Platelet Estimate Slight increase (Normal) H 03/26/17 04:26 Creatinine 0.68 mg/dL (0.72-1.25) L 03/27/17 04:46 Glucose 114 mg/dL (70-99) H 03/27/17 04:46 POC Glucose 148 (58-89) H 03/25/17 20:34 Vancomycin Trough 9.7 mcg/mL (10-20) L 03/26/17 04:26 - Microbiology Findings Microbiology Findings: Microbiology, Last 48 Hours 03/25/17 09:56 Blood Culture - Preliminary Peripheral Venipuncture No growth. 03/25/17 09:56 Blood Culture - Preliminary Peripheral Venipuncture No growth. - Clinical Findings Intake & Output: Intake & Output 03/26/17 03/27/17 03/27/17 23:59 07:59 15:59 Intake Total 820 / 820 500 / 500 100 / 100 Output Total 0 / 0 Balance 820 / 820 500 / 500 100 / 100 Weight 91.5 kg Consult Discharge Plan - Plan Referrals: Rolf Cole MD [Primary Care Provider] - 04/03/17 1:15 pm
[2017-03-27] MEDS: Levofloxacin 750 MG/150 ML 750 MG/150 ML BAG IVPB SCH (12:20)
[2017-03-27 18:25] LABS: Hematocrit 44.5 % (37.5-50.1); Hemoglobin 14.7 g/dL (12.9-16.9)
[2017-03-28] MEDS: Piperacillin/Tazobactam 3.375 GM in D5% in Water (Mini-Bag+) 100 ML IVPB SCH ×3 (01:58→19:30)
[2017-03-28 05:00] LABS: Basophils # 0.1 K/mcL (0.0-0.2); Basophils % 0.5 %; Eosinophils % 0.1 %; Hematocrit 42.6 % (37.5-50.1); Hemoglobin 14.3 g/dL (12.9-16.9); Immature Granulocytes % 2.8 % (0-4); Lymphocytes # 0.5 K/mcL (0.6-4.6); Lymphocytes % 3.3 %; Mean Corpuscular HGB Conc 33.6 g/dL (31.6-35.5); Mean Corpuscular Hemoglobin 32.6 pg (28.0-33.3); Mean Platelet Volume 8.7 fL (9.4-12.4); Monocytes # 1.6 K/mcL (0.0-1.3); Monocytes % 11.2 %; Neutrophils # 11.9 K/mcL (1.6-8.9); Platelet Count 326 K/mcL (140-400); Red Blood Count 4.39 M/mcL (4.19-5.50); Red Cell Distribution Width 12.1 % (11.5-14.5); Segmented Neutrophils % 82.1 %
[2017-03-28 05:26] LABS: Alanine Aminotransferase 78 Units/L (0-55); Albumin 2.4 g/dL (3.5-5.0); Albumin/Globulin Ratio 0.7 (1.1-2.2); Alkaline Phosphatase 132 Units/L (38-126); Aspartate Amino Transferase 44 Units/L (5-34); BUN/Creatinine Ratio 17 (6-26); Bilirubin,Total 0.4 mg/dL (0.2-1.2); Blood Urea Nitrogen 12 mg/dL (8-26); Calcium 9.5 mg/dL (8.6-10.8); Carbon Dioxide 28 mEq/L (19-29); Chloride 102 mEq/L (98-109); Globulin 3.6 g/dL (2.4-3.5); Glucose 93 mg/dL (70-99); Osmolality,Calculated 285 (280-300); Sodium 138 mEq/L (136-145); eGFR For African Americans > 60 (> 60); eGFR For Non-African Americans > 60 (> 60)
[2017-03-28] MEDS: Ipratropium/Albuterol Neb 3 ML IH SCH ×4 (05:34→23:12)
[2017-03-28] MEDS: Vancomycin 1,750 MG in D5% in Water 500 ML IVPB SCH ×2 (06:05→17:06)
[2017-03-28] MEDS: Levofloxacin 750 MG/150 ML 750 MG/150 ML BAG IVPB SCH (07:59)
[2017-03-28] MEDS: Insulin LISPRO 300 UNITS/3 ML VIAL SQ SCH ×4 (08:00→23:13)
[2017-03-28] MEDS: MethylPREDNISolone 40 MG/ML VIAL IVP SCH (08:00)
[2017-03-28] MEDS ORDERED: *HR* FentaNYL (PF) 100 MCG/2 ML VIAL ONE (10:34)
[2017-03-28] MEDS ORDERED: Lidocaine Viscous Oral Soln 15 ML SOLUTION ONE (10:34)
[2017-03-28] MEDS ORDERED: *HR* Midazolam HCl 5 MG/5 ML VIAL IVP ONE (10:34)
[2017-03-28] MEDS ORDERED: *HR* EPINEPHrine 1 MG/10 ML SYRINGE INTRATRACH PRN (10:49)
[2017-03-28] MEDS ORDERED: Simethicone 40 MG/0.6 ML MLS IR ONE (10:49)
[2017-03-28] MEDS ORDERED: *HR* FentaNYL (PF) 100 MCG/2 ML VIAL IVP PRN (10:49)
[2017-03-28] MEDS ORDERED: *HR* Midazolam HCl 5 MG/5 ML VIAL IVP PRN (10:49)
[2017-03-28] MEDS ORDERED: Tetracaine/Benzocaine/Butamben 200MG/SPRAY (100SPY/BOT) MM ONE (10:49)
[2017-03-28] MEDS ORDERED: Lidocaine Viscous Oral Soln 15 ML SOLUTION MM ONE (10:49)
[2017-03-28] MEDS ORDERED: 0.9 % Sodium Chloride 1,000 ML IVC SCH (11:00)
--- NOTE | 2017-03-28 12:30 | Internal Med Progress Note ---
Date of Encounter: 03/28/17 Time of Encounter: 12:28 - Assessment and plan (1) Hemoptysis Current Visit: Yes Status: Acute Assessment and plan: Patient was complaining of hemoptysis since 5 AM this morning. Noted that patient had a 6-7 episodes of moderate to severe hemoptysis. 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 Patient was treated by oncologist at [facility]. Currently patient is admitted for hospital-acquired pneumonia. Today is her day 3 of IV antibiotics. Plan: Propped up position. Discontinue Lovenox. Apply SCD. CT scan of the chest with contrast (creatinine 1.09) Consult pulmonology: Possible bronchoscopy. Nothing by mouth. Plan discussed with the patient. Patient verbalized understanding. 03/28/2017 Noted that yesterday patient underwent bronchoscopy. Patient had a APC treatment for the fungating lesion which was present in the trachea. Patient is scheduled for bronchoscopy today. We will follow the recommendation from pulmonary. Patient will need a follow-up with [facility] for further management. (2) HAP (hospital-acquired pneumonia) Current Visit: Yes Status: Acute Assessment and plan: Admitted with hospital-acquired pneumonia. Presently on vancomycin/Zosyn/levofloxacin Day 3 of antibiotics. Noted that this morning patient had a hemoptysis. Plan: See above 03/28/2017 D4 of antibiotics. We will continue the same treatment. Possible home in 1-2 days. (3) COPD exacerbation Current Visit: Yes Status: Acute Assessment and plan: Patient is presently on steroids/antibiotics/bronchodilators. We will continue same management. (4) DVT prophylaxis Current Visit: No Status: Acute Assessment and plan: Discontinue Lovenox Apply SCD. Medical decision making: This patient has moderate to severe risk of worsening clinically in spite of being on appropriate treatment due to the new onset of hemoptysis in a background history of a squamous cell carcinoma of the lung. - Subjective Interval history: Patient seen and examined. Chart reviewed. Patient complains of hemoptysis since 5 AM this morning. Patient had more than 6 or 7 episodes of hemoptysis. 03/28/2017 Patient seen and examined. Chart reviewed. Patient still has occasional hemoptysis. Patient denies chest pain, shortness of breath, palpitations and abdominal pain. - Constitutional Vitals: Temp Pulse Resp BP Pulse Ox 97.7 F 89 18 122/76 92 03/28/17 12:00 03/28/17 12:00 03/28/17 12:00 03/28/17 12:00 03/28/17 12:00 General appearance: Present: A&O X 3, pleasant, no acute distress, loss of weight, answers questions appropriately - Head Head exam: Present: atraumatic, normocephalic - Eye Eye exam: Present: PERRL, conjuntiva pink, sclera anicteric Pupils: Present: PERRL - Neck Neck exam general surgery: Present: supple, trachea midline. Absent: lymphadenopathy - Respiratory Respiratory exam: Present: CTAB. Absent: accessory muscle use, rales, rhonchi, wheezes - Cardiovascular Cardiovascular exam: Present: RRR, +S1, +S2. Absent: diastolic murmur, gallop, rubs, systolic murmur - GI/Abdominal GI/Abdominal exam: Present: normal bowel sounds, soft, no peritoneal signs. Absent: distended, tenderness - Extremities Exam Extremities exam: Present: warm, radial pulses palpable and symetrical. Absent : calf tenderness, cyanotic, pedal edema - Neurological Exam Neurological exam: Present: CN II-XII intact, oriented X3, no focal deficits. Absent: pronater drift, facial droop, speech deficit - Skin Skin exam: Present: dry, intact Internal Medicine: Result - Labs CBC & Chem 7: 03/28/17 03:48 03/28/17 03:48 Labs: Short CBC 03/27/17 03/28/17 Range/Units 18:12 03:48 WBC 14.5 H (4.3-11.1) K/mcL Hgb 14.7 14.3 (12.9-16.9) g/dL Hct 44.5 42.6 (37.5-50.1) % Plt Count 326 (140-400) K/mcL Neutrophils # 11.9 H (1.6-8.9) K/mcL BMP 03/28/17 03:48 Sodium 138 Potassium 4.0 Chloride 102 Carbon Dioxide 28 BUN 12 Creatinine 0.71 L Glucose 93 Calcium 9.5 Liver Function 03/28/17 Range/Units 03:48 Total Bilirubin 0.4 (0.2-1.2) mg/dL AST 44 H (5-34) Units/L ALT 78 H (0-55) Units/L Alkaline Phosphatase 132 H (38-126) Units/L Albumin 2.4 L (3.5-5.0) g/dL - Impressions Impressions Chest CT 03/27/17 11:00 IMPRESSION: 1. New areas of patchy ground-glass opacity in the mid to lower lungs are suspicious for pulmonary hemorrhage given the history of hemoptysis. 2. 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 D/ / 03/27/2017 17:46:14 Richard Huang MD / glen Interpreting Provider: Richard Huang MD - VTE Documentation of Mechanical Device: Intermittent pneumatic compression device Consult Discharge Plan - Plan Referrals: Rolf Cole MD [Primary Care Provider] - 04/03/17 1:15 pm
--- NOTE | 2017-03-28 13:29 | Event Note ---
Date of Encounter: 03/28/17 Time of Encounter: 13:25 Repeat bronchoscopy performed today. The distal tracheal obstructing lesion was attended to with APC which resulted and debulking of lesion and [place] and airway caliber. Of note, bronchoscopy revealed complete obstruction of the left lower lobe and partial obstruction of the left upper lobe by bulky endobronchial lesions consistent with malignancy (metastatic squamous cell carcinoma). Other than local treatment with brachii therapy to attend to the lesion in the distal trachea, I do not believe the patient would benefit from any other treatments regarding disease within the left upper and left lower lobe. Given the patient's recurrent and extensive metastatic disease and lack of viable treatment options, I think that he would be a suitable candidate to receive palliative care and potentially hospice care within the next several months. From my perspective, I have nothing further to add to the care of this individual. Should you have any questions at all please feel free to contact me at any time. [facility] [phone]
[2017-03-28] MEDS: Multivit/Ca/Min/Fe/FA 1 TAB TABLET PO SCH (13:32)
[2017-03-29] MEDS: Piperacillin/Tazobactam 3.375 GM in D5% in Water (Mini-Bag+) 100 ML IVPB SCH (02:05)
[2017-03-29] MEDS: Ipratropium/Albuterol Neb 3 ML IH SCH ×4 (04:49→22:22)
[2017-03-29] MEDS: Vancomycin 1,750 MG in D5% in Water 500 ML IVPB SCH (06:28)
[2017-03-29 06:31] LABS: Basophils # 0.1 K/mcL (0.0-0.2); Basophils % 0.6 %; Eosinophils % 0.2 %; Hematocrit 47.3 % (37.5-50.1); Hemoglobin 15.3 g/dL (12.9-16.9); Immature Granulocytes % 2.8 % (0-4); Lymphocytes # 0.5 K/mcL (0.6-4.6); Lymphocytes % 2.8 %; Mean Corpuscular HGB Conc 32.3 g/dL (31.6-35.5); Mean Corpuscular Hemoglobin 31.7 pg (28.0-33.3); Mean Corpuscular Volume 97.9 fL (83.0-100.0); Mean Platelet Volume 8.7 fL (9.4-12.4); Monocytes # 1.7 K/mcL (0.0-1.3); Monocytes % 9.9 %; Neutrophils # 14.5 K/mcL (1.6-8.9); Platelet Count 342 K/mcL (140-400); Red Blood Count 4.83 M/mcL (4.19-5.50); Red Cell Distribution Width 12.1 % (11.5-14.5); Segmented Neutrophils % 83.7 %
[2017-03-29 06:56] LABS: Alanine Aminotransferase 61 Units/L (0-55); Albumin 2.6 g/dL (3.5-5.0); Albumin/Globulin Ratio 0.7 (1.1-2.2); Alkaline Phosphatase 124 Units/L (38-126); Aspartate Amino Transferase 28 Units/L (5-34); BUN/Creatinine Ratio 15 (6-26); Bilirubin,Total 0.5 mg/dL (0.2-1.2); Blood Urea Nitrogen 13 mg/dL (8-26); Calcium 9.8 mg/dL (8.6-10.8); Carbon Dioxide 32 mEq/L (19-29); Chloride 99 mEq/L (98-109); Globulin 3.9 g/dL (2.4-3.5); Glucose 98 mg/dL (70-99); Osmolality,Calculated 288 (280-300); Potassium 3.9 mEq/L (3.5-4.5); Sodium 139 mEq/L (136-145); Total Protein 6.5 g/dL (6.0-8.3); eGFR For African Americans > 60 (> 60); eGFR For Non-African Americans > 60 (> 60)
[2017-03-29] MEDS: Insulin LISPRO 300 UNITS/3 ML VIAL SQ SCH ×4 (08:06→20:10)
[2017-03-29] MEDS: MethylPREDNISolone 40 MG/ML VIAL IVP SCH (08:07)
[2017-03-29] MEDS: Levofloxacin 750 MG/150 ML 750 MG/150 ML BAG IVPB SCH (08:07)
[2017-03-29] MEDS: Multivit/Ca/Min/Fe/FA 1 TAB TABLET PO SCH (08:07)
[2017-03-29 11:50] LABS: Basophils # 0.1 K/mcL (0.0-0.2); Basophils % 0.5 %; Eosinophils % 0.1 %; Hematocrit 45.8 % (37.5-50.1); Hemoglobin 15.4 g/dL (12.9-16.9); Immature Granulocytes % 2.6 % (0-4); Lymphocytes # 0.4 K/mcL (0.6-4.6); Lymphocytes % 2.2 %; Mean Corpuscular HGB Conc 33.6 g/dL (31.6-35.5); Mean Corpuscular Hemoglobin 32.3 pg (28.0-33.3); Mean Platelet Volume 8.6 fL (9.4-12.4); Monocytes # 0.7 K/mcL (0.0-1.3); Monocytes % 4.2 %; Neutrophils # 15.1 K/mcL (1.6-8.9); Platelet Count 295 K/mcL (140-400); Red Blood Count 4.77 M/mcL (4.19-5.50); Red Cell Distribution Width 12.2 % (11.5-14.5); Segmented Neutrophils % 90.4 %
[2017-03-29 12:02] LABS: Alanine Aminotransferase 59 Units/L (0-55); Albumin 2.5 g/dL (3.5-5.0); Albumin/Globulin Ratio 0.6 (1.1-2.2); Alkaline Phosphatase 116 Units/L (38-126); Aspartate Amino Transferase 25 Units/L (5-34); BUN/Creatinine Ratio 15 (6-26); Bilirubin,Total 0.5 mg/dL (0.2-1.2); Blood Urea Nitrogen 12 mg/dL (8-26); Calcium 9.7 mg/dL (8.6-10.8); Carbon Dioxide 28 mEq/L (19-29); Chloride 101 mEq/L (98-109); Globulin 4.1 g/dL (2.4-3.5); Glucose 125 mg/dL (70-99); Osmolality,Calculated 285 (280-300); Potassium 3.9 mEq/L (3.5-4.5); Sodium 137 mEq/L (136-145); Total Protein 6.6 g/dL (6.0-8.3); eGFR For African Americans > 60 (> 60); eGFR For Non-African Americans > 60 (> 60)
--- NOTE | 2017-03-29 14:09 | Internal Med Progress Note ---
Date of Encounter: 03/29/17 Time of Encounter: 14:06 - Assessment and plan (1) Hemoptysis Current Visit: Yes Status: Acute Assessment and plan: Patient was complaining of hemoptysis since 5 AM this morning. Noted that patient had a 6-7 episodes of moderate to severe hemoptysis. 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 Patient was treated by oncologist at [facility]. Currently patient is admitted for hospital-acquired pneumonia. Today is her day 3 of IV antibiotics. Plan: Propped up position. Discontinue Lovenox. Apply SCD. CT scan of the chest with contrast (creatinine 1.09) Consult pulmonology: Possible bronchoscopy. Nothing by mouth. Plan discussed with the patient. Patient verbalized understanding. 03/28/2017 Noted that yesterday patient underwent bronchoscopy. Patient had a APC treatment for the fungating lesion which was present in the trachea. Patient is scheduled for bronchoscopy today. We will follow the recommendation from pulmonary. Patient will need a follow-up with [facility] for further management. 03/29/2017 Patient underwent bronchoscopy yesterday. Debulking of the tumor was done. Patient tolerated the procedure well We will continue to monitor patient very closely. If patient starts improving, possible home over the weekend. (2) HAP (hospital-acquired pneumonia) Current Visit: Yes Status: Acute Assessment and plan: Admitted with hospital-acquired pneumonia. Presently on vancomycin/Zosyn/levofloxacin Day 3 of antibiotics. Noted that this morning patient had a hemoptysis. Plan: See above 03/28/2017 D4 of antibiotics. We will continue the same treatment. Possible home in 1-2 days. (3) COPD exacerbation Current Visit: Yes Status: Acute Assessment and plan: Patient is presently on steroids/antibiotics/bronchodilators. We will continue same management. (4) DVT prophylaxis Current Visit: No Status: Acute Assessment and plan: Discontinue Lovenox Apply SCD. Medical decision making: This patient has moderate to severe risk of worsening clinically in spite of being on appropriate treatment due to the new onset of hemoptysis in a background history of a squamous cell carcinoma of the lung. - Subjective Interval history: Patient seen and examined. Chart reviewed. Patient complains of hemoptysis since 5 AM this morning. Patient had more than 6 or 7 episodes of hemoptysis. 03/28/2017 Patient seen and examined. Chart reviewed. Patient still has occasional hemoptysis. Patient denies chest pain, shortness of breath, palpitations and abdominal pain. 03/29/2017 Seen and examined. Chart reviewed. Patient was able to walk from bed to bathroom. Patient claims that he is still short of breath. Patient denies any anxiety attack today. - Constitutional Vitals: Temp Pulse Resp BP Pulse Ox 98 F 108 16 126/71 92 03/29/17 11:50 03/29/17 11:50 03/29/17 11:50 03/29/17 11:50 03/29/17 11:50 General appearance: Present: A&O X 3, pleasant, no acute distress, loss of weight, answers questions appropriately - Head Head exam: Present: atraumatic, normocephalic - Eye Eye exam: Present: PERRL, conjuntiva pink, sclera anicteric Pupils: Present: PERRL - Neck Neck exam general surgery: Present: supple, trachea midline. Absent: lymphadenopathy - Respiratory Respiratory exam: Present: CTAB. Absent: accessory muscle use, rales, rhonchi, wheezes - Cardiovascular Cardiovascular exam: Present: RRR, +S1, +S2. Absent: diastolic murmur, gallop, rubs, systolic murmur - GI/Abdominal GI/Abdominal exam: Present: normal bowel sounds, soft, no peritoneal signs. Absent: distended, tenderness - Extremities Exam Extremities exam: Present: warm, radial pulses palpable and symetrical. Absent : calf tenderness, cyanotic, pedal edema - Neurological Exam Neurological exam: Present: CN II-XII intact, oriented X3, no focal deficits. Absent: pronater drift, facial droop, speech deficit - Skin Skin exam: Present: dry, intact Internal Medicine: Result - Labs CBC & Chem 7: 03/29/17 11:23 03/29/17 11:23 Labs: Short CBC 03/29/17 03/29/17 Range/Units 04:43 11:23 WBC 17.3 H 16.7 H (4.3-11.1) K/mcL Hgb 15.3 15.4 (12.9-16.9) g/dL Hct 47.3 45.8 (37.5-50.1) % Plt Count 342 295 (140-400) K/mcL Neutrophils # 14.5 H 15.1 H (1.6-8.9) K/mcL BMP 03/29/17 03/29/17 04:43 11:23 Sodium 139 137 Potassium 3.9 3.9 Chloride 99 101 Carbon Dioxide 32 H 28 BUN 13 12 Creatinine 0.85 0.79 Glucose 98 125 H Calcium 9.8 9.7 Liver Function 03/29/17 03/29/17 Range/Units 04:43 11:23 Total Bilirubin 0.5 0.5 (0.2-1.2) mg/dL AST 28 25 (5-34) Units/L ALT 61 H 59 H (0-55) Units/L Alkaline Phosphatase 124 116 (38-126) Units/L Albumin 2.6 L 2.5 L (3.5-5.0) g/dL - VTE Documentation of Mechanical Device: Intermittent pneumatic compression device Consult Discharge Plan - Plan Referrals: Rolf Cole MD [Primary Care Provider] - 04/03/17 1:15 pm
[2017-03-29] MEDS: *HR* HYDROcodone/Acet 5/325 mg TABLET PO PRN (20:19)
[2017-03-30] MEDS: Levofloxacin 750 MG/150 ML 750 MG/150 ML BAG IVPB SCH ×2 (00:34→09:43)
[2017-03-30] MEDS: Vancomycin 1,750 MG in D5% in Water 500 ML IVPB SCH ×2 (00:37→12:03)
[2017-03-30] MEDS: Piperacillin/Tazobactam 3.375 GM in D5% in Water (Mini-Bag+) 100 ML IVPB SCH ×3 (02:16→17:08)
[2017-03-30] MEDS: Ipratropium/Albuterol Neb 3 ML IH SCH ×5 (04:07→22:31)
[2017-03-30 05:46] LABS: Basophils # 0.1 K/mcL (0.0-0.2); Basophils % 0.8 %; Eosinophils # 0.1 K/mcL (0.0-0.6); Eosinophils % 0.7 %; Hemoglobin 15.2 g/dL (12.9-16.9); Immature Granulocytes % 3.6 % (0-4); Lymphocytes # 0.5 K/mcL (0.6-4.6); Mean Corpuscular HGB Conc 33.8 g/dL (31.6-35.5); Mean Corpuscular Hemoglobin 32.6 pg (28.0-33.3); Mean Corpuscular Volume 96.6 fL (83.0-100.0); Mean Platelet Volume 8.6 fL (9.4-12.4); Monocytes # 1.7 K/mcL (0.0-1.3); Monocytes % 10.8 %; Neutrophils # 12.9 K/mcL (1.6-8.9); Platelet Count 276 K/mcL (140-400); Red Blood Count 4.66 M/mcL (4.19-5.50); Red Cell Distribution Width 12.3 % (11.5-14.5); Segmented Neutrophils % 81.1 %
[2017-03-30 06:00] LABS: Alanine Aminotransferase 48 Units/L (0-55); Albumin 2.3 g/dL (3.5-5.0); Albumin/Globulin Ratio 0.6 (1.1-2.2); Alkaline Phosphatase 113 Units/L (38-126); Aspartate Amino Transferase 22 Units/L (5-34); BUN/Creatinine Ratio 17 (6-26); Bilirubin,Total 0.5 mg/dL (0.2-1.2); Blood Urea Nitrogen 14 mg/dL (8-26); Calcium 9.5 mg/dL (8.6-10.8); Carbon Dioxide 29 mEq/L (19-29); Chloride 99 mEq/L (98-109); Globulin 3.9 g/dL (2.4-3.5); Glucose 98 mg/dL (70-99); Osmolality,Calculated 282 (280-300); Potassium 3.6 mEq/L (3.5-4.5); Sodium 136 mEq/L (136-145); Total Protein 6.2 g/dL (6.0-8.3); eGFR For African Americans > 60 (> 60); eGFR For Non-African Americans > 60 (> 60)
[2017-03-30] MEDS: Insulin LISPRO 300 UNITS/3 ML VIAL SQ SCH ×4 (09:19→20:31)
[2017-03-30] MEDS: Multivit/Ca/Min/Fe/FA 1 TAB TABLET PO SCH (09:43)
[2017-03-30] MEDS: MethylPREDNISolone 40 MG/ML VIAL IVP SCH (09:43)
--- NOTE | 2017-03-30 13:10 | Internal Med Progress Note ---
Date of Encounter: 03/30/17 Time of Encounter: 13:08 - Assessment and plan (1) Hemoptysis Current Visit: Yes Status: Acute Assessment and plan: Patient was complaining of hemoptysis since 5 AM this morning. Noted that patient had a 6-7 episodes of moderate to severe hemoptysis. 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 Patient was treated by oncologist at [facility]. Currently patient is admitted for hospital-acquired pneumonia. Today is her day 3 of IV antibiotics. Plan: Propped up position. Discontinue Lovenox. Apply SCD. CT scan of the chest with contrast (creatinine 1.09) Consult pulmonology: Possible bronchoscopy. Nothing by mouth. Plan discussed with the patient. Patient verbalized understanding. 03/28/2017 Noted that yesterday patient underwent bronchoscopy. Patient had a APC treatment for the fungating lesion which was present in the trachea. Patient is scheduled for bronchoscopy today. We will follow the recommendation from pulmonary. Patient will need a follow-up with [facility] for further management. 03/29/2017 Patient underwent bronchoscopy yesterday. Debulking of the tumor was done. Patient tolerated the procedure well We will continue to monitor patient very closely. If patient starts improving, possible home over the weekend. 03/30/2017 Patient Is compared to yesterday, today he is doing 30% better. No hemoptysis noted. Patient is breathing improved. if clinically worsens then transfer to [facility] for further management. (2) HAP (hospital-acquired pneumonia) Current Visit: Yes Status: Acute Assessment and plan: Admitted with hospital-acquired pneumonia. Presently on vancomycin/Zosyn/levofloxacin Day 3 of antibiotics. Noted that this morning patient had a hemoptysis. Plan: See above 03/28/2017 D4 of antibiotics. We will continue the same treatment. Possible home in 1-2 days. 03/30/2017 Day 4 of antibiotics. We will continue antibiotics altogether 7 days. Patient is tolerating antibiotics extremely well. (3) COPD exacerbation Current Visit: Yes Status: Acute Assessment and plan: Patient is presently on steroids/antibiotics/bronchodilators. We will continue same management. (4) DVT prophylaxis Current Visit: No Status: Acute Assessment and plan: Discontinue Lovenox Apply SCD. Medical decision making: This patient has moderate to severe risk of worsening clinically in spite of being on appropriate treatment due to the new onset of hemoptysis in a background history of a squamous cell carcinoma of the lung. - Subjective Interval history: Patient seen and examined. Chart reviewed. Patient complains of hemoptysis since 5 AM this morning. Patient had more than 6 or 7 episodes of hemoptysis. 03/28/2017 Patient seen and examined. Chart reviewed. Patient still has occasional hemoptysis. Patient denies chest pain, shortness of breath, palpitations and abdominal pain. 03/29/2017 Seen and examined. Chart reviewed. Patient was able to walk from bed to bathroom. Patient claims that he is still short of breath. Patient denies any anxiety attack today. 03/30/2017 Seen and examined. Chart reviewed. Patient is comfortably sitting up in bed. Patient denies hemoptysis, shortness of breath, dizziness, abdominal pain or diarrhea. - Constitutional Vitals: Temp Pulse Resp BP Pulse Ox 99.2 F 120 16 114/75 93 03/30/17 07:07 03/30/17 07:07 03/30/17 11:12 03/30/17 07:07 03/30/17 11:12 General appearance: Present: A&O X 3, pleasant, no acute distress, loss of weight, answers questions appropriately - Head Head exam: Present: atraumatic, normocephalic - Eye Eye exam: Present: PERRL, conjuntiva pink, sclera anicteric Pupils: Present: PERRL - Neck Neck exam general surgery: Present: supple, trachea midline. Absent: lymphadenopathy - Respiratory Respiratory exam: Present: CTAB. Absent: accessory muscle use, rales, rhonchi, wheezes - Cardiovascular Cardiovascular exam: Present: RRR, +S1, +S2. Absent: diastolic murmur, gallop, rubs, systolic murmur - GI/Abdominal GI/Abdominal exam: Present: normal bowel sounds, soft, no peritoneal signs. Absent: distended, tenderness - Extremities Exam Extremities exam: Present: warm, radial pulses palpable and symetrical. Absent : calf tenderness, cyanotic, pedal edema - Neurological Exam Neurological exam: Present: CN II-XII intact, oriented X3, no focal deficits. Absent: pronater drift, facial droop, speech deficit - Skin Skin exam: Present: dry, intact Internal Medicine: Result - Labs CBC & Chem 7: 03/30/17 05:22 03/30/17 05:22 Labs: Short CBC 03/30/17 Range/Units 05:22 WBC 15.9 H (4.3-11.1) K/mcL Hgb 15.2 (12.9-16.9) g/dL Hct 45.0 (37.5-50.1) % Plt Count 276 (140-400) K/mcL Neutrophils # 12.9 H (1.6-8.9) K/mcL BMP 03/30/17 05:22 Sodium 136 Potassium 3.6 Chloride 99 Carbon Dioxide 29 BUN 14 Creatinine 0.81 Glucose 98 Calcium 9.5 Liver Function 03/30/17 Range/Units 05:22 Total Bilirubin 0.5 (0.2-1.2) mg/dL AST 22 (5-34) Units/L ALT 48 (0-55) Units/L Alkaline Phosphatase 113 (38-126) Units/L Albumin 2.3 L (3.5-5.0) g/dL - VTE Documentation of Mechanical Device: Intermittent pneumatic compression device Consult Discharge Plan - Plan Referrals: Rolf Cole MD [Primary Care Provider] - 04/03/17 1:15 pm
[2017-03-30] MEDS ORDERED: Vancomycin 1,000 MG in D5% in Water 250 ML IVPB SCH (23:01)
[2017-03-31] MEDS: Piperacillin/Tazobactam 3.375 GM in D5% in Water (Mini-Bag+) 100 ML IVPB SCH ×3 (00:13→15:59)
[2017-03-31] MEDS: Vancomycin 1,750 MG in D5% in Water 500 ML IVPB SCH ×2 (00:17→13:48)
[2017-03-31] MEDS: *HR* HYDROcodone/Acet 5/325 mg TABLET PO PRN (04:36)
[2017-03-31] MEDS: Ipratropium/Albuterol Neb 3 ML IH SCH ×5 (05:00→22:33)
[2017-03-31 05:12] LABS: Basophils % 0.2 %; Eosinophils % 0.2 %; Hemoglobin 14.7 g/dL (12.9-16.9); Immature Granulocytes % 2.4 % (0-4); Lymphocytes # 0.6 K/mcL (0.6-4.6); Lymphocytes % 3.5 %; Mean Corpuscular HGB Conc 34.2 g/dL (31.6-35.5); Mean Corpuscular Hemoglobin 32.8 pg (28.0-33.3); Monocytes % 12.1 %; Neutrophils # 13.2 K/mcL (1.6-8.9); Platelet Count 318 K/mcL (140-400); Red Blood Count 4.48 M/mcL (4.19-5.50); Red Cell Distribution Width 12.4 % (11.5-14.5); Segmented Neutrophils % 81.6 %
[2017-03-31 05:32] LABS: Alanine Aminotransferase 53 Units/L (0-55); Albumin 2.3 g/dL (3.5-5.0); Albumin/Globulin Ratio 0.6 (1.1-2.2); Alkaline Phosphatase 103 Units/L (38-126); Aspartate Amino Transferase 29 Units/L (5-34); BUN/Creatinine Ratio 18 (6-26); Bilirubin,Total 0.5 mg/dL (0.2-1.2); Blood Urea Nitrogen 16 mg/dL (8-26); Calcium 9.6 mg/dL (8.6-10.8); Carbon Dioxide 27 mEq/L (19-29); Chloride 100 mEq/L (98-109); Glucose 95 mg/dL (70-99); Osmolality,Calculated 281 (280-300); Sodium 135 mEq/L (136-145); Total Protein 6.3 g/dL (6.0-8.3); eGFR For African Americans > 60 (> 60); eGFR For Non-African Americans > 60 (> 60)
[2017-03-31] MEDS: Insulin LISPRO 300 UNITS/3 ML VIAL SQ SCH ×4 (08:52→23:50)
[2017-03-31] MEDS: MethylPREDNISolone 40 MG/ML VIAL IVP SCH (09:04)
[2017-03-31] MEDS: Multivit/Ca/Min/Fe/FA 1 TAB TABLET PO SCH (09:04)
[2017-03-31] MEDS: Levofloxacin 750 MG/150 ML 750 MG/150 ML BAG IVPB SCH (09:05)
--- NOTE | 2017-03-31 16:22 | Internal Med Progress Note ---
Date of Encounter: 03/31/17 Time of Encounter: 16:20 - Assessment and plan (1) Hemoptysis Current Visit: Yes Status: Acute Assessment and plan: Patient was complaining of hemoptysis since 5 AM this morning. Noted that patient had a 6-7 episodes of moderate to severe hemoptysis. 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 Patient was treated by oncologist at [facility]. Currently patient is admitted for hospital-acquired pneumonia. Today is her day 3 of IV antibiotics. Plan: Propped up position. Discontinue Lovenox. Apply SCD. CT scan of the chest with contrast (creatinine 1.09) Consult pulmonology: Possible bronchoscopy. Nothing by mouth. Plan discussed with the patient. Patient verbalized understanding. 03/28/2017 Noted that yesterday patient underwent bronchoscopy. Patient had a APC treatment for the fungating lesion which was present in the trachea. Patient is scheduled for bronchoscopy today. We will follow the recommendation from pulmonary. Patient will need a follow-up with [facility] for further management. 03/29/2017 Patient underwent bronchoscopy yesterday. Debulking of the tumor was done. Patient tolerated the procedure well We will continue to monitor patient very closely. If patient starts improving, possible home over the weekend. 03/30/2017 Patient Is compared to yesterday, today he is doing 30% better. No hemoptysis noted. Patient is breathing improved. if clinically worsens then transfer to [facility] for further management. 03/31/2017 Patient still has occasional hemoptysis. His hemoglobin is stable. Will continue present management. Patient is keen for some definitive treatment. Possible transfer to [facility] tomorrow. (2) HAP (hospital-acquired pneumonia) Current Visit: Yes Status: Acute Assessment and plan: Admitted with hospital-acquired pneumonia. Presently on vancomycin/Zosyn/levofloxacin Day 3 of antibiotics. Noted that this morning patient had a hemoptysis. Plan: See above 03/28/2017 D4 of antibiotics. We will continue the same treatment. Possible home in 1-2 days. 03/30/2017 Day 4 of antibiotics. We will continue antibiotics altogether 7 days. Patient is tolerating antibiotics extremely well. (3) COPD exacerbation Current Visit: Yes Status: Acute Assessment and plan: Patient is presently on steroids/antibiotics/bronchodilators. We will continue same management. (4) DVT prophylaxis Current Visit: No Status: Acute Assessment and plan: Discontinue Lovenox Apply SCD. Medical decision making: This patient has moderate to severe risk of worsening clinically in spite of being on appropriate treatment due to the new onset of hemoptysis in a background history of a squamous cell carcinoma of the lung. - Subjective Interval history: Patient seen and examined. Chart reviewed. Patient complains of hemoptysis since 5 AM this morning. Patient had more than 6 or 7 episodes of hemoptysis. 03/28/2017 Patient seen and examined. Chart reviewed. Patient still has occasional hemoptysis. Patient denies chest pain, shortness of breath, palpitations and abdominal pain. 03/29/2017 Seen and examined. Chart reviewed. Patient was able to walk from bed to bathroom. Patient claims that he is still short of breath. Patient denies any anxiety attack today. 03/30/2017 Seen and examined. Chart reviewed. Patient is comfortably sitting up in bed. Patient denies hemoptysis, shortness of breath, dizziness, abdominal pain or diarrhea. 03/31/2017 Patient complains of occasional hemoptysis. Denies chest pain, shortness of breath, dizziness or diarrhea. He is keen to get some definitive treatment. - Constitutional Vitals: Temp Pulse Resp BP Pulse Ox 98.2 F 104 16 125/68 93 03/31/17 15:28 03/31/17 15:28 03/31/17 15:28 03/31/17 15:28 03/31/17 15:28 General appearance: Present: A&O X 3, pleasant, no acute distress, loss of weight, answers questions appropriately - Head Head exam: Present: atraumatic, normocephalic - Eye Eye exam: Present: PERRL, conjuntiva pink, sclera anicteric Pupils: Present: PERRL - Neck Neck exam general surgery: Present: supple, trachea midline. Absent: lymphadenopathy - Respiratory Respiratory exam: Present: CTAB. Absent: accessory muscle use, rales, rhonchi, wheezes - Cardiovascular Cardiovascular exam: Present: RRR, +S1, +S2. Absent: diastolic murmur, gallop, rubs, systolic murmur - GI/Abdominal GI/Abdominal exam: Present: normal bowel sounds, soft, no peritoneal signs. Absent: distended, tenderness - Extremities Exam Extremities exam: Present: warm, radial pulses palpable and symetrical. Absent : calf tenderness, cyanotic, pedal edema - Neurological Exam Neurological exam: Present: CN II-XII intact, oriented X3, no focal deficits. Absent: pronater drift, facial droop, speech deficit - Skin Skin exam: Present: dry, intact Internal Medicine: Result - Labs CBC & Chem 7: 03/31/17 04:18 03/31/17 04:18 Labs: Short CBC 03/31/17 Range/Units 04:18 WBC 16.2 H (4.3-11.1) K/mcL Hgb 14.7 (12.9-16.9) g/dL Hct 43.0 (37.5-50.1) % Plt Count 318 (140-400) K/mcL Neutrophils # 13.2 H (1.6-8.9) K/mcL BMP 03/31/17 04:18 Sodium 135 L Potassium 4.0 Chloride 100 Carbon Dioxide 27 BUN 16 Creatinine 0.90 Glucose 95 Calcium 9.6 Liver Function 03/31/17 Range/Units 04:18 Total Bilirubin 0.5 (0.2-1.2) mg/dL AST 29 (5-34) Units/L ALT 53 (0-55) Units/L Alkaline Phosphatase 103 (38-126) Units/L Albumin 2.3 L (3.5-5.0) g/dL - VTE Documentation of Mechanical Device: Intermittent pneumatic compression device Consult Discharge Plan - Plan Referrals: Rolf Cole MD [Primary Care Provider] - 04/03/17 1:15 pm
[2017-04-01] MEDS: Vancomycin 1,750 MG in D5% in Water 500 ML IVPB SCH ×2 (00:17→11:58)
[2017-04-01] MEDS: Piperacillin/Tazobactam 3.375 GM in D5% in Water (Mini-Bag+) 100 ML IVPB SCH ×3 (02:02→16:05)
[2017-04-01 04:12] LABS: Basophils # 0.1 K/mcL (0.0-0.2); Basophils % 0.3 %; Eosinophils % 0.2 %; Hematocrit 42.3 % (37.5-50.1); Hemoglobin 14.4 g/dL (12.9-16.9); Immature Granulocytes % 1.8 % (0-4); Lymphocytes # 0.5 K/mcL (0.6-4.6); Lymphocytes % 3.4 %; Mean Corpuscular Hemoglobin 32.5 pg (28.0-33.3); Mean Corpuscular Volume 95.5 fL (83.0-100.0); Mean Platelet Volume 9.1 fL (9.4-12.4); Monocytes # 1.8 K/mcL (0.0-1.3); Monocytes % 11.8 %; Neutrophils # 12.8 K/mcL (1.6-8.9); Platelet Count 290 K/mcL (140-400); Red Blood Count 4.43 M/mcL (4.19-5.50); Red Cell Distribution Width 12.2 % (11.5-14.5); Segmented Neutrophils % 82.5 %
[2017-04-01 04:32] LABS: Alanine Aminotransferase 67 Units/L (0-55); Albumin 2.3 g/dL (3.5-5.0); Albumin/Globulin Ratio 0.6 (1.1-2.2); Alkaline Phosphatase 99 Units/L (38-126); Aspartate Amino Transferase 39 Units/L (5-34); BUN/Creatinine Ratio 20 (6-26); Bilirubin,Total 0.5 mg/dL (0.2-1.2); Blood Urea Nitrogen 17 mg/dL (8-26); Calcium 9.5 mg/dL (8.6-10.8); Carbon Dioxide 23 mEq/L (19-29); Chloride 100 mEq/L (98-109); Globulin 3.9 g/dL (2.4-3.5); Glucose 91 mg/dL (70-99); Osmolality,Calculated 275 (280-300); Potassium 4.2 mEq/L (3.5-4.5); Sodium 132 mEq/L (136-145); Total Protein 6.2 g/dL (6.0-8.3); eGFR For African Americans > 60 (> 60); eGFR For Non-African Americans > 60 (> 60)
[2017-04-01] MEDS: Ipratropium/Albuterol Neb 3 ML IH SCH ×3 (04:39→16:59)
[2017-04-01] MEDS: Insulin LISPRO 300 UNITS/3 ML VIAL SQ SCH ×3 (08:30→15:56)
[2017-04-01] MEDS: MethylPREDNISolone 40 MG/ML VIAL IVP SCH (08:41)
[2017-04-01] MEDS: Levofloxacin 750 MG/150 ML 750 MG/150 ML BAG IVPB SCH (08:43)
[2017-04-01] MEDS: Multivit/Ca/Min/Fe/FA 1 TAB TABLET PO SCH (08:43)
[2017-04-01] MEDS: *HR* HYDROcodone/Acet 5/325 mg TABLET PO PRN (11:58)
--- NOTE | 2017-04-01 12:10 | Discharge Summary ---
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: Primary Status: Chronic (2) Hemoptysis Priority: Primary Status: Acute (3) HAP (hospital-acquired pneumonia) Priority: Primary Status: Acute (4) COPD exacerbation Priority: Secondary Status: Acute (5) DVT prophylaxis Priority: Secondary Status: Acute - Discharge Medications Home Medications: Albuterol Neb [Proventil Neb] 1 - 2 puff IH Q4-6H 10/03/15 [History] Cyclobenzaprine [Flexeril] 10 mg PO TID 10/03/15 [History] Lisinopril [Zestril] 5 mg PO DAILY 10/03/15 [History] Multivitamin [Multi-Day Vitamins] 1 tab PO DAILY 10/03/15 [History] Guaifenesin [Guaifenesin ER] 1,200 mg PO BID #60 tab.er.12h 03/18/17 [Rx] HYDROcodone/Acet 5/325 mg [[place] 5-325 mg] 1 tab PO Q6H PRN 03/18/17 [History] MethylPREDNISolone [MethylPREDNISolone Dose Pack] 4 mg PO AD #21 tab 03/18/17 [ Rx] Albuterol Neb [AccuNeb] 1.25 mg IH TID PRN 03/24/17 [History] Fluticasone/Vilanterol [Breo Ellipta 200-25 Mcg INH] 1 puff IH DAILY 03/24/17 [ History] Umeclidinium [place] [Incruse Ellipta] 1 puff IH DAILY 03/24/17 [History] Allergies/Adverse Reactions: Allergies No Known Allergies Allergy (Verified 03/28/16 11:31) Date of admission: 03/24/17 16:28 Primary care physician: Rolf Cole MD Consults: 03/24/17 16:33 Consult to Speech Therapy [CONS] Routine Comment: Evaluate, develop and implement POC Reason for Consult: swallow eval Time Notified: 16:33 Call Completed: No 03/24/17 16:48 Consult to Curtain Cutter [CONS] Routine Reason for SW Consult: being seen at [facility] for cancer treatment. Lives with mother who also has cancer. 03/27/17 08:58 Consult to Pulmonology [CONS] Routine Consulting Provider: [facility] Reason for Consult: hemoptysis in a previously diagnosed SCC Call Completed: Yes Discharging clinician: Tristan Pisano - Patient Status Disposition: Transfer Other Condition: Fair Functional capacity at discharge: wheelchair bound Overall status at discharge: patient is not back to baseline - Discharge Instructions Follow Up With: Rolf Cole MD [Primary Care Provider] - 04/03/17 1:15 pm - Diet and Activity Activity: increase activity as tolerated Diet: low fat, low cholesterol, low salt diet Interval History: Mr. Greenwood is a 56 year old male past medical history of long-standing intractable cancer hypertension COPD. Patient is status post prolonged partial resection in March 06. For the past week he has been experiencing worsening wheezing cough with productive yellow AND GREEN SPUTUM HE HAS ALSO BEEN EXPERIENCING FEVERS 99-101 WELL CHILLS OVER THE PAST 5 DAYS. HE ADMITS TO LEFT LOWER CHEST DISCOMFORT DURING COUGH. HE HAS NOT BEEN ABLE TO COMPLETE HIS ADLS HE BECOMES SHORT OF BREATH VERY EASILY AND WILL HAVE TO TAKE FREQUENT REST BREAKS WELL UTILIZING HIS RESCUE INHALER HE SAYS POSSIBLY 10 TIMES A DAY. HE IS NOT ON ANY HOME OXYGEN AT THIS TIME. HE IS NOT RECEIVING ANY CHEMOTHERAPY AT THIS TIME HE IS TO FOLLOW-UP WITH [facility] NEXT WEEK FOR RADIATION TREATMENT. THIS A.M. PATIENT DESCRIBED INCREASING SHORT OF BREATH HE STATES THAT NORMALLY HIS OXYGEN SATURATIONS HAVE BEEN RUNNING AROUND 95% HE DID CALL EMS AND UPON ARRIVAL PATIENT'S OXYGEN SATURATION 89% he is transported to the ER for further workup evaluation. According to ER records lab work did reveal some leukocytosis 19.7 rest of his lab work was unremarkable he was 92% on 2 L nasal cannula chest x-rays show pneumonia and a left lower lobe he did receive duo nebs as well as IV steroids he continued descent to 90% on room air during conversation. He was admitted for further workup and evaluation. Presently patient does not appear to be respiratory status distress however he does have audible tracheal breath sounds. He has a moist nonproductive cough lung sounds with scattered rhonchi. SPO2 is 92% on room air heart sounds with S1-S2 no rubs gallops click or murmurs noted. Hospital course: Patient was hospitalized. His blood cultures were drawn. He was started on antibiotics. In view of the recent hospitalization he was given a broad- spectrum coverage in terms of vancomycin/Zosyn/levofloxacin. Patient had an episode of hemoptysis. Pulmonology was consulted. Pulmonology recommended bronchoscopy. Bronchoscopy was done. Noted that patient has a tracheal mass which was fungating in nature and that was the source of hemoptysis. argon plasma coagulation was done. Patient tolerated procedure well. Hemostasis was controlled. Lipid procedure was done next day. Patient's orthostasis was much better as compared to the previous. Patient was continued to get IV antibiotics for the next 48 hours. Patient started again having hemoptysis and this time it was around 2-3 tablespoonful. Patient wishes to go to [facility] for further evaluation. I discussed this case with the pulmonology and then they agreed for the transfer. I spoke with the registered nurse Destiney and she told me that patient is accepted by Dr Blue. PATIENT answered. At the time of discharge patient does not have any questions, concerns, updated or recommendation. - Time Spent with Patient Total time spent providing and/or coordinating discharge services: - Constitutional Vitals: Temp Pulse Resp BP Pulse Ox 97.8 F 110 15 118/68 90 04/01/17 11:34 04/01/17 11:34 04/01/17 11:34 04/01/17 11:34 04/01/17 11:34 General appearance: Present: A&O X 3, pleasant, no acute distress, loss of weight, answers questions appropriately - VTE Documentation of Mechanical Device: Intermittent pneumatic compression device
[2017-04-01 15:24] VITALS: BP 121/68
[2017-04-01] MEDS ORDERED: Aminoglycoside Consult 1 EACH MC ONE (19:06)
== END 2017-04-01 19:07 | disposition other institution (70) | DRG 121 ==
LOC: EMEROO 11:06 → 2NENU 11:06 → SUATTDRO 16:28
PROVIDERS: ADMIT Hospitalist; ATTEND Internal Medicine
PROC: ENDOBRF (2017-03-27 10:30)